=== PATIENT | male | born 1940 | race Caucasian/White ===

== ENCOUNTER 2024-02-29 06:00 | Outpatient (CLI) | payer MEDICARE, BC, OTHER, SELFPAY | END 2024-02-29 06:01 | disposition home or self-care (01) | LOC: RAD 03-09 11:03 | PROVIDERS: PCP Family Medicine; Visit Provider Psychiatry & Neurology Neurology | DX: E55.9 Vitamin D deficiency, unspecified (principal); R41.3 Other amnesia | CPT/HCPCS: 36415; 82306; 83090; 83540; 83735; 83921; 86617 ==

== ENCOUNTER → 2024-02-29 07:39 | Outpatient (BNVA) | payer MEDICARE, BC, OTHER, SELFPAY | PROVIDERS: PCP Family Medicine; Referring Provider Family Medicine; Visit Provider Psychiatry & Neurology Neurology | DX: E55.9 Vitamin D deficiency, unspecified (principal); R41.3 Other amnesia; I10 Essential (primary) hypertension; G62.9 Polyneuropathy, unspecified; R42 Dizziness and giddiness; I15.2 Hypertension secondary to endocrine disorders; R29.898 Other symptoms and signs involving the musculoskeletal system; R20.2 Paresthesia of skin; M62.549 Muscle wasting and atrophy, not elsewhere classified, unspecified hand; E11.9 Type 2 diabetes mellitus without complications | CPT/HCPCS: 99203 ==

== ENCOUNTER 2024-03-23 10:55 | Outpatient (CLI) | payer MEDICARE, OTHER, SELFPAY ==
--- NOTE | 2024-03-23 11:15 | USCV_ITS ---
[place] Age: 83 Gender: M : 1940 Exam Date: 03/23/2024 11:24 Ordering Phys: Roby Waller MD Technologist: NICHELLE Exam Location: [facility] [place] Indication: Stenosis Risk Factors: Previous Vascular Surgery: Right Brachial BP: / Left Brachial BP: / Right Left Velocity (cm/s) Spectral Plaque Velocity (cm/s) Spectral Plaque Syst/Diast Broadening Syst/Diast Broadening 60.40/ 10.90 Prox CCA 318.30/ 17.80 84.10/ 12.50 Mid CCA 128.60/ 12.60 76.20/ 12.80 Distal CCA 115.70/ 17.80 86.70/ 11.40 Prox ICA 35.00 / 6.60 73.50/ 10.70 Mid ICA 58.50 / 14.90 72.70/ 14.90 Distal ICA 69.00 / 14.00 110.70 ECA 89.90 1.10 ICA/CCA 0.60 Antegrade Vertebral Antegrade 65.00/ 10.60 cm/s 26.30/ 4.30 cm/s Tri Subclavian Bi 208.4 110.0 0 0 FINDINGS Comparison: none available. No significant elevation of systolic or diastolic velocities. Waveforms are normal. Mixture of calcified and noncalcified plaque in the bifurcations. CONCLUSIONS Bilateral ICA stenosis less than 50%. Dr. Katia Nguyễn DO (Electronically Signed) Final Date: 26 March 2024 07:45 S
== END 2024-03-23 10:56 | disposition home or self-care (01) ==
LOC: RAD 10:57
PROVIDERS: PCP Family Medicine; Visit Provider Psychiatry & Neurology Neurology
DX: E11.59 Type 2 diabetes mellitus with other circulatory complications (principal); I15.2 Hypertension secondary to endocrine disorders; R42 Dizziness and giddiness; E11.9 Type 2 diabetes mellitus without complications
CPT/HCPCS: 93880

== ENCOUNTER → 2024-05-11 11:47 | Outpatient (BNVA) | payer MEDICARE, OTHER, SELFPAY | PROVIDERS: PCP Family Medicine; Visit Provider Podiatrist Foot & Ankle Surgery | DX: S82.831A Other fracture of upper and lower end of right fibula, initial encounter for closed fracture (principal); W18.00XA Striking against unspecified object with subsequent fall, initial encounter | CPT/HCPCS: 99204 ==

== ENCOUNTER → 2024-05-28 12:39 | Outpatient (BNVA) | payer MEDICARE, OTHER, SELFPAY | PROVIDERS: PCP Family Medicine; Visit Provider Podiatrist Foot & Ankle Surgery | DX: S82.821D Torus fracture of lower end of right fibula, subsequent encounter for fracture with routine healing; X58.XXXD Exposure to other specified factors, subsequent encounter | CPT/HCPCS: 73610; 99213 ==

== ENCOUNTER → 2024-06-19 13:33 | Outpatient (BNVA) | payer MEDICARE, OTHER, SELFPAY | PROVIDERS: PCP Family Medicine; Visit Provider Podiatrist Foot & Ankle Surgery | DX: S82.831D Other fracture of upper and lower end of right fibula, subsequent encounter for closed fracture with routine healing; S99.911D Unspecified injury of right ankle, subsequent encounter; X58.XXXD Exposure to other specified factors, subsequent encounter | CPT/HCPCS: 73610; 99213 ==

== ENCOUNTER 2024-06-19 15:18 | Outpatient (CLI) | payer MEDICARE, OTHER, SELFPAY | END 2024-06-19 15:19 | disposition home or self-care (01) | LOC: SPT 15:18 | PROVIDERS: PCP Family Medicine; Visit Provider Podiatrist Foot & Ankle Surgery | DX: Z46.89 Encounter for fitting and adjustment of other specified devices (principal); S82.831D Other fracture of upper and lower end of right fibula, subsequent encounter for closed fracture with routine healing; S99.911D Unspecified injury of right ankle, subsequent encounter; X58.XXXD Exposure to other specified factors, subsequent encounter | CPT/HCPCS: 97760; L1902 ==

== ENCOUNTER → 2024-07-17 14:09 | Outpatient (BNVA) | payer MEDICARE, OTHER, SELFPAY | PROVIDERS: PCP Family Medicine; Visit Provider Podiatrist Foot & Ankle Surgery | DX: S82.831D Other fracture of upper and lower end of right fibula, subsequent encounter for closed fracture with routine healing (principal); X58.XXXD Exposure to other specified factors, subsequent encounter | CPT/HCPCS: 73610; 99213 ==